=== PATIENT | female | born 1990 | race Hispanic/Latino ===

== ENCOUNTER 2022-01-15 22:11 | Emergency (ER) | payer MEDICAID, OTHER ==
[~2022-01-15] VITALS: Ht 154.9 cm; Wt 71.7 kg
[~2022-01-15 22:11] MED LIST: PREN-196 PO
[2022-01-15 22:22] VITALS: BP 134/76
[2022-01-15] MEDS ORDERED: IBUPROFEN 800 MG TAB PO ONE (23:30)
[2022-01-15] MEDS ORDERED: NAPR-1180 PO (23:31)
== END 2022-01-15 23:38 | disposition home or self-care (01) ==
LOC: EDH 22:11
DX: S50.12XA Contusion of left forearm, initial encounter (principal); Z79.1 Long term (current) use of non-steroidal anti-inflammatories (NSAID); X58.XXXA Exposure to other specified factors, initial encounter; Y93.89 Activity, other specified; Y92.89 Other specified places as the place of occurrence of the external cause; Y99.8 Other external cause status
CPT/HCPCS: 73090